=== PATIENT | female | born 1990 | race Asian ===

== ENCOUNTER 2020-09-13 14:07 | Emergency (ER) | payer OTHER ==
[~2020-09-13] VITALS: Ht 157.5 cm; Wt 93.2 kg
[2020-09-13] MEDS ORDERED: METF-960 PO (14:12)
[2020-09-13 15:42] VITALS: BP 115/77
== END 2020-09-13 16:00 | disposition home or self-care (01) ==
LOC: EMS 14:07
DX: T21.22XA Burn of second degree of abdominal wall, initial encounter (principal); T22.212A Burn of second degree of left forearm, initial encounter; E11.9 Type 2 diabetes mellitus without complications; X11.8XXA Contact with other hot tap-water, initial encounter; Y93.89 Activity, other specified; Y92.89 Other specified places as the place of occurrence of the external cause; Y99.8 Other external cause status
CPT/HCPCS: Z7502

== ENCOUNTER 2020-10-29 00:37 | Emergency (ER) | payer OTHER ==
[~2020-10-29] VITALS: Ht 160 cm; Wt 189.0 kg
[~2020-10-29 00:37] MED LIST: METF-960 PO
[2020-10-29 00:41] VITALS: BP 110/68
[2020-10-29] MEDS ORDERED: KETOROLAC TROMETHAMINE 30 MG/ML VIAL IM ONE (02:30)
[2020-10-29 02:47] LABS: COVID AG,FIA SOURCE NASOPHARYNGEAL
[2020-10-29 05:06] LABS: RAPID GROUP A STREP POSITIVE (NEGATIVE)
== END 2020-10-29 05:42 | disposition home or self-care (01) ==
LOC: EMS 00:39
DX: J02.0 Streptococcal pharyngitis (principal); Z20.822 Contact with and (suspected) exposure to COVID-19
CPT/HCPCS: 87426; 87430; 96372; 99283; J1885

== ENCOUNTER 2020-11-09 17:08 | Emergency (ER) | payer OTHER ==
[~2020-11-09] VITALS: Ht 165.1 cm; Wt 77.3 kg
[2020-11-09] MEDS ORDERED: IBUP-2071 PO (17:13)
[2020-11-09] MEDS ORDERED: 0.9% SODIUM CHLORIDE 10 ML SYRINGE IVP PRN (18:45)
[2020-11-09] MEDS ORDERED: KETOROLAC TROMETHAMINE 30 MG/ML VIAL IVP ONE (18:45)
[2020-11-09] MEDS ORDERED: SODIUM CHLORIDE 0.9% 1,000 ML IV ONE (19:30)
[2020-11-09 19:52] LABS: BASOPHILS % (AUTO) 0.3 % (0.0-2.0); EOSINOPHILS % (AUTO) 0.2 % (1.0-6.0); HEMATOCRIT 48.7 % (36-46); HEMOGLOBIN 15.9 g/dL (12.0-16.0); LYMPHOCYTES # (AUTO) 1.5 K/uL (1.0-4.8); LYMPHOCYTES % (AUTO) 5.7 % (22.0-44.0); MEAN CORPUSCULAR HGB CONC 32.5 G/dL (31.0-37.0); MEAN CORPUSCULAR VOLUME 92 fL (80-100); MONOCYTES % (AUTO) 3.9 % (2.0-9.0); NEUTROPHILS # (AUTO) 23.8 K/uL (1.8-7.7); NEUTROPHILS % (AUTO) 89.9 % (40.0-70.0); PLATELET COUNT (AUTO) 300 K/uL (150-450); RED BLOOD CELL COUNT(AUTO) 5.28 MIL/uL (4.00-5.20); RED CELL DISTRIBUTION WIDTH 13.7 % (11.5-14.5)
[2020-11-09] MEDS ORDERED: CLINDAMYCIN 600 MG/D5% WATER 50 ML IV ONE (20:15)
[2020-11-09] MEDS ORDERED: DEXAMETHASONE SOD PHOS 4 MG/ML 5 ML VIAL IVP ONE (20:15)
[2020-11-09 21:33] LABS: ANION GAP 12 mmol/L (8-16); CALCIUM, TOTAL 9.2 mg/dL (8.8-10.5); CARBON DIOXIDE 20 mmol/L (22-29); CHLORIDE 103 mmol/L (98-107); CREATININE 0.66 mg/dL (0.60-1.30); GLOMERULAR FILTR. RATE CALC > 60 mL/min (>60); GLUCOSE,RANDOM 106 mg/dL (70-110); POTASSIUM 3.7 mmol/L (3.5-5.1); SODIUM SERUM 135 mmol/L (136-145); UREA NITROGEN, BLOOD 8 mg/dL (7-18)
[2020-11-09 21:48] LABS: ALANINE AMINOTRANSFERASE 27 U/L (12-78); ALBUMIN 3.4 g/dL (3.4-5.0); ALKALINE PHOSPHATASE 84 U/L (46-116); ASPARTATE AMINOTRANSFERASE 19 U/L (15-37); BILIRUBIN,TOTAL 0.6 mg/dL (0.1-1.0); HCG,QUANTITATIVE < 1 mIU/mL (0-6); TOTAL PROTEIN, SERUM 7.9 g/dL (6.4-8.2)
[2020-11-09] MEDS ORDERED: SODIUM CHLORIDE 0.9% 100 ML ONE (22:13)
[2020-11-09] MEDS ORDERED: IOVERSOL 350 MG/ML 100 ML VIAL ONE (22:13)
[2020-11-09] MEDS ORDERED: CefTRIAXone 1 GM/DEXTROSE 50 ML IV ONE ×2 (22:15)
[2020-11-09] MEDS ORDERED: CLINDAMYCIN 300 MG/D5% WATER 50 ML IV ONE (22:15)
[2020-11-09] MEDS ORDERED: CefTRIAXone SODIUM 2 GM in DEXTROSE 5%-WATER 50 ML IV ONE (22:30)
[2020-11-10 01:35] LABS: COVID AG,FIA SOURCE NASOPHARYNGEAL
[2020-11-10] MEDS ORDERED: SODIUM CHLORIDE 0.9% 1,000 ML IV ONE (02:30)
[2020-11-10] MEDS ORDERED: KETOROLAC TROMETHAMINE 30 MG/ML VIAL IVP ONE (02:30)
[2020-11-10 03:01] VITALS: BP 100/58
== END 2020-11-10 05:29 ==
LOC: EMS 17:11
DX: J36 Peritonsillar abscess (principal); J05.10 Acute epiglottitis without obstruction; E11.9 Type 2 diabetes mellitus without complications; F17.210 Nicotine dependence, cigarettes, uncomplicated; Z20.822 Contact with and (suspected) exposure to COVID-19; Z79.84 Long term (current) use of oral hypoglycemic drugs
CPT/HCPCS: 36415; 70491; 80053; 83605; 84702; 85025; 87040; 87426; 87430; 96361; 96365; 96367; 96368; 96375; 96376; 99285; J0696; J1100; J1885 ×2; J3490 ×2; J7030 ×2; J7050; J7060; Q9967